=== PATIENT | male | born 1950 | race Caucasian/White ===

== ENCOUNTER 2018-06-04 15:44 | Emergency (ER) | payer MEDICARE ==
[~2018-06-04] VITALS: Ht 177.8 cm; Wt 81.6 kg
--- NOTE | 2018-06-04 16:13 | ED.ADGEN ---
Adult General Chief Complaint Chief Complaint RLQ pain HPI HPI Patient had onset of right lower quadrant pain after his dog jumped into his abdomen Devan evening. Since then, he's had progressive right lower quadrant pain associated with vomiting, no diarrhea with intermittent fevers and sweats. He's had decreased appetite and last ate a solid meal last night, but last fluid intake at 15:40. He denies any chest pain or shortness of breath. He denies any dysuria or flank pain. Review of Systems Review of Systems Constitutional: With fevers and sweats Eyes: Denies change in visual acuity, redness, or eye pain HENT: Denies nasal congestion or sore throat Respiratory: Denies cough or shortness of breath Cardiovascular: Denies chest pain GI: with RLQ abdominal pain, nausea,no vomiting, bloody stools or diarrhea : Denies dysuria or hematuria Musculoskeletal: Denies back pain or joint pain Integument: Denies rash or skin lesions Neurologic: Denies headache, focal weakness or sensory changes Endocrine: Denies polyuria or polydipsia All other systems were reviewed and found to be within normal limits, except as documented in this note. Current Medications Current Medications Current Medications Medications (Trade) Dose Ordered Sig/Sandeep Start Time Stop Time Status Last Admin Dose Admin Iohexol (Omnipaque 300 Mg/ml) 75 ml 1X ONCE 06/04/18 16:45 06/04/18 16:46 DC Ondansetron HCl (Zofran) 4 mg 1X ONCE 06/04/18 17:10 06/04/18 17:11 DC 06/04/18 16:51 4 MG Piperacillin Sod/ Tazobactam Sod (Zosyn) 3.375 gm STK-MED ONCE 06/04/18 18:25 06/04/18 18:26 DC Piperacillin Sod/ Tazobactam Sod 3.375 gm/Sodium Chloride 50 ml @ 100 mls/hr 1X ONCE 06/04/18 18:30 06/04/18 18:59 UNV Sodium Chloride 50 ml @ As Directed STK-MED ONCE 06/04/18 18:25 06/04/18 18:26 DC Sodium Chloride (Normal Saline Flush) 10 ml QSHIFT PRN 06/04/18 17:45 06/04/18 19:38 DC Allergies Allergies Allergies Coded Allergies Type Severity Reaction Last Updated Verified codeine Allergy Intermediate gi complaints 06/04/18 Yes Physical Exam Physical Exam Constitutional: Well developed, well nourished, mild pain distress, clammy HENT: Normocephalic, atraumatic, bilateral external ears normal, oropharynx moist, no oral exudates, nose normal. Eyes: PERRLA, EOMI, conjunctiva normal, no discharge. Neck: Normal range of motion, no tenderness, supple, no stridor. Cardiovascular:Heart rate regular rhythm, no murmur Lungs & Thorax: Bilateral breath sounds clear to auscultation Abdomen: Marked RLQ tenderness with guarding, decreased bowel sounds, no masses , no pulsatile masses. Skin: Warm, clammy, no erythema, no rash. Back: No tenderness, no CVA tenderness. Extremities: No tenderness, no cyanosis, no clubbing, ROM intact, no edema. Neurologic: Alert and oriented X 3, normal motor function, normal sensory function, no focal deficits noted. Psychologic: Affect normal, judgement normal, mood normal. Current Patient Data Vital Signs Vital Signs Date Time Temp Pulse Resp B/P (MAP) Pulse Ox O2 Delivery O2 Flow Rate FiO2 06/04/18 17:45 82 20 141/72 (95) 97 Room Air 06/04/18 15:44 98.4 Lab Results Laboratory Tests Test 06/04/18 16:00 06/04/18 16:15 06/04/18 17:35 06/04/18 19:07 Urine Collection Type Unknown Urine Color Yellow Urine Clarity Clear Urine pH 5.5 Urine Specific Aristes 1.015 Urine Protein 100 mg/dl (NEG-TRACE) Urine Glucose (UA) >=1000 mg/dL (NEG) Urine Ketones (Stick) 15 mg/dL (NEG) Urine Blood Mod (NEG) Urine Nitrite Neg (NEG) Urine Bilirubin Neg (NEG) Urine Urobilinogen Dipstick 0.2 mg/dL (0.2 mg/dL) Urine Leukocyte Esterase Neg (NEG) Urine RBC 3-5 /HPF (0-2) Urine WBC Occ /HPF (0-4) Urine Squamous Epithelial Cells Few /LPF Urine Bacteria 0 /HPF (0-FEW) Urine Mucus Slight /LPF White Blood Count 17.0 x10^3/uL (4.0-11.0) H Red Blood Count 5.01 x10^6/uL (4.30-5.70) Hemoglobin 14.8 g/dL (13.0-17.5) Hematocrit 44.4 % (39.0-53.0) Mean Corpuscular Volume 89 fL (79-100) Mean Corpuscular Hemoglobin 30 pg (25-35) Mean Corpuscular Hemoglobin Concent 33 g/dL (31-37) Red Cell Distribution Width 14.1 % (11.5-14.5) Platelet Count 139 x10^3/uL (140-400) L Neutrophils (%) (Auto) 89 % (31-73) H Lymphocytes (%) (Auto) 5 % (24-48) L Monocytes (%) (Auto) 5 % (0-9) Eosinophils (%) (Auto) 0 % (0-3) Basophils (%) (Auto) 0 % (0-3) Neutrophils # (Auto) 15.1 x10^3uL (1.8-7.7) H Lymphocytes # (Auto) 0.9 x10^3/uL (1.0-4.8) L Monocytes # (Auto) 0.9 x10^3/uL (0.0-1.1) Eosinophils # (Auto) 0.0 x10^3/uL (0.0-0.7) Basophils # (Auto) 0.0 x10^3/uL (0.0-0.2) Segmented Neutrophils % 77 % (35-66) H Band Neutrophils % 11 % (0-9) H Lymphocytes % 1 % (24-48) L Atypical Lymphocytes % (Manual) 5 % (0-0) H Monocytes % 6 % (0-10) Platelet Estimate Adequate (ADEQUATE) Sodium Level 135 mmol/L (136-145) L Potassium Level 4.8 mmol/L (3.5-5.1) Chloride Level 94 mmol/L (98-107) L Carbon Dioxide Level 31 mmol/L (21-32) Anion Gap 10 (6-14) Blood Urea Nitrogen 29 mg/dL (8-26) H Creatinine 1.7 mg/dL (0.7-1.3) H Estimated GFR (Cockcroft-Gault) 40.5 BUN/Creatinine Ratio 17 (6-20) Glucose Level 232 mg/dL (70-99) H Lactic Acid Level 3.0 mmol/L (0.4-2.0) H 1.6 mmol/L (0.4-2.0) Calcium Level 9.1 mg/dL (8.5-10.1) Total Bilirubin 1.9 mg/dL (0.2-1.0) H Aspartate Amino Transferase (AST) 16 U/L (15-37) Alanine Aminotransferase (ALT) 32 U/L (16-63) Alkaline Phosphatase 53 U/L (46-116) Total Protein 7.5 g/dL (6.4-8.2) Albumin 3.6 g/dL (3.4-5.0) Albumin/Globulin Ratio 0.9 (1.0-1.7) L Lipase 83 U/L (73-393) Prothrombin Time 11.4 SEC (9.4-11.4) Prothrombin Time INR 1.1 (0.9-1.1) Test 06/04/18 19:15 Troponin I Quantitative < 0.017 ng/mL (0-0.055) Laboratory Tests Test 06/04/18 16:00 06/04/18 16:15 06/04/18 17:35 06/04/18 19:07 Urine Collection Type Unknown Urine Color Yellow Urine Clarity Clear Urine pH 5.5 Urine Specific Aristes 1.015 Urine Protein 100 mg/dl Urine Glucose (UA) >=1000 mg/dL Urine Ketones (Stick) 15 mg/dL Urine Blood Mod Urine Nitrite Neg Urine Bilirubin Neg Urine Urobilinogen Dipstick 0.2 mg/dL Urine Leukocyte Esterase Neg Urine RBC 3-5 /HPF Urine WBC Occ /HPF Urine Squamous Epithelial Cells Few /LPF Urine Bacteria 0 /HPF Urine Mucus Slight /LPF White Blood Count 17.0 x10^3/uL Red Blood Count 5.01 x10^6/uL Hemoglobin 14.8 g/dL Hematocrit 44.4 % Mean Corpuscular Volume 89 fL Mean Corpuscular Hemoglobin 30 pg Mean Corpuscular Hemoglobin Concent 33 g/dL Red Cell Distribution Width 14.1 % Platelet Count 139 x10^3/uL Neutrophils (%) (Auto) 89 % Lymphocytes (%) (Auto) 5 % Monocytes (%) (Auto) 5 % Eosinophils (%) (Auto) 0 % Basophils (%) (Auto) 0 % Neutrophils # (Auto) 15.1 x10^3uL Lymphocytes # (Auto) 0.9 x10^3/uL Monocytes # (Auto) 0.9 x10^3/uL Eosinophils # (Auto) 0.0 x10^3/uL Basophils # (Auto) 0.0 x10^3/uL Segmented Neutrophils % 77 % Band Neutrophils % 11 % Lymphocytes % 1 % Atypical Lymphocytes % (Manual) 5 % Monocytes % 6 % Platelet Estimate Adequate Sodium Level 135 mmol/L Potassium Level 4.8 mmol/L Chloride Level 94 mmol/L Carbon Dioxide Level 31 mmol/L Anion Gap 10 Blood Urea Nitrogen 29 mg/dL Creatinine 1.7 mg/dL Estimated GFR (Cockcroft-Gault) 40.5 BUN/Creatinine Ratio 17 Glucose Level 232 mg/dL Lactic Acid Level 3.0 mmol/L 1.6 mmol/L Calcium Level 9.1 mg/dL Total Bilirubin 1.9 mg/dL Aspartate Amino Transf (AST/SGOT) 16 U/L Alanine Aminotransferase (ALT/SGPT) 32 U/L Alkaline Phosphatase 53 U/L Total Protein 7.5 g/dL Albumin 3.6 g/dL Albumin/Globulin Ratio 0.9 Lipase 83 U/L Prothrombin Time 11.4 SEC Prothromb Time International Ratio 1.1 Test 06/04/18 19:15 Troponin I Quantitative < 0.017 ng/mL Current Medications Medications (Trade) Dose Ordered Sig/Sandeep Route PRN Reason Start Time Stop Time Status Last Admin Dose Admin Iohexol (Omnipaque 300 Mg/ml) 75 ml 1X ONCE IV 06/04/18 16:45 06/04/18 16:46 DC Ondansetron HCl (Zofran) 4 mg STK-MED ONCE .ROUTE 06/04/18 16:37 06/04/18 16:38 DC Ondansetron HCl (Zofran) 4 mg 1X ONCE IV 06/04/18 17:10 06/04/18 17:11 DC 06/04/18 16:51 4 MG Sodium Chloride (Normal Saline Flush) 10 ml QSHIFT PRN IV AFTER MEDS AND BLOOD DRAWS 06/04/18 17:45 06/04/18 19:38 DC Sodium Chloride 1,000 ml @ 2,190 mls/hr Q28M IV 06/04/18 18:00 06/04/18 19:00 DC 06/04/18 19:14 2,190 MLS/HR Piperacillin Sod/ Tazobactam Sod 3.375 gm/Sodium Chloride 50 ml @ 100 mls/hr 1X ONCE IV 06/04/18 18:30 06/04/18 18:59 DC 06/04/18 18:31 100 MLS/HR Piperacillin Sod/ Tazobactam Sod 3.375 gm/Sodium Chloride 50 ml @ 100 mls/hr 1X ONCE IV 06/04/18 18:30 06/04/18 18:59 UNV Sodium Chloride 50 ml @ As Directed STK-MED ONCE .ROUTE 06/04/18 18:25 06/04/18 18:26 DC Piperacillin Sod/ Tazobactam Sod (Zosyn) 3.375 gm STK-MED ONCE IV 06/04/18 18:25 06/04/18 18:26 DC EKG EKG 16:27 ECG NSR @ 75 with Q waves II III aVF with no acute changes Radiology/Procedures Radiology/Procedures [address] [address] IMAGING REPORT Signed PATIENT: FERDINAND DELVALLE ACCOUNT: [id number] : 1950 LOCATION: ER AGE: 68 SEX: M EXAM STATUS: PRE ER ORD. PHYSICIAN: JUAN DIEGO TANG MD REASON: RLQ pain PROCEDURE: CT ABD PELV W/ IV CONTRST ONLY PQRS Compliance Statement: One or more of the following individualized dose reduction techniques were utilized for this examination: 1. Automated exposure control 2. Adjustment of the mA and/or kV according to patient size 3. Use of iterative reconstruction technique CT ABD PELV W/ IV CONTRST ONLY Clinical Indication: RLQ pain with vomiting x 1 day, Comparison: None. Technique: Helical CT imaging of the abdomen and pelvis is performed after 60 cc of Omnipaque 300 IV contrast. Oral contrast not given. Findings: Minimal bilateral dependent atelectasis. Coronary artery disease. Cardiac size normal. Calcified granulomas in the spleen. The liver, gallbladder, pancreas, and adrenal glands are normal. Mild mural thrombus and atherosclerotic calcification of the abdominal aorta and common iliac arteries. There is no hydronephrosis. There is left perinephric stranding. Mild cortical scarring of the bilateral kidneys. Stomach unremarkable. There is small bowel that is upper limits of normal in caliber and fluid-filled. There is no point of transition. Distal small bowel is normal caliber. The terminal ileum may be mildly thickened, probably reactive, there is nearby inflammation. There is moderate acute appendicitis. There is moderate surrounding inflammation. The diameter of the appendix measures about 15 mm. There are appendicoliths. No perforation or periappendiceal abscess. There is no colon wall thickening. No abdominal adenopathy. There is borderline wall thickening of the urinary bladder. Prostate size near upper limits of normal. There is mild pelvic free fluid. Degenerative spondylosis of the lower lumbar spine. IMPRESSION: 1. Moderate acute appendicitis. 2. Mild wall thickening of the terminal ileum may be reactive, in the vicinity of appendicitis. 3. Small bowel upper limits of normal in caliber and fluid-filled, probably ileus. 4. Mild pelvic free fluid. Electronically signed by: Jamaal Buck MD (06/04/2018 5:53 PM) [facility] DICTATED AND SIGNED BY: JAMAAL BUCK MD DATE: 06/04/18 1746 CC: KELSIE SWANSON; JUAN DIEGO TANG MD ~ Course & Med Decision Making Course & Med Decision Making Patient presents with complaints of right lower quadrant pain DDx-acute appendicitis, colitis, kidney stone, UTI, obstruction Patient was stable in the emergency department. Labs remarkable for leukocytosis , elevated BUN creatinine, hyperglycemia, elevated serum lactate. ECG and troponin showed no evidence of ACS. CT Abdomen pelvis showed acute appendicitis. Patient was given IV NS 30ml/kg bolus, Zosyn IV after blood cultures. After IV NS fluid bolus serum lactate normalized. Patient NPO. 19:[address] Santiago who accepts patient to [facility] for evaluation of acute appendicitis 19:[address] King for medical consultation Final Impression Final Impression Clinical impression Acute appendicitis Renal insufficiency Eileen Disclaimer Eileen Disclaimer This electronic medical record was generated, in whole or in part, using a voice recognition dictation system. Departure Departure: Impression: Primary Impression: Appendicitis, acute Additional Impression: Renal insufficiency Disposition: 05 XFER OTHER Condition: STABLE JUAN DIEGO TANG MD Jun 04, 2018 16:13
[2018-06-04] MEDS ORDERED: ONDANSETRON PF 4 MG/2 ML VIAL. ONE (16:37)
[2018-06-04 16:42] LABS: BASO % 0 % (0-3); EOS % 0 % (0-3); HEMATOCRIT 44.4 % (39.0-53.0); HEMOGLOBIN 14.8 g/dL (13.0-17.5); LYMPH # 0.9 x10^3/uL (1.0-4.8); LYMPH % 5 % (24-48); MEAN CORPUSCULAR HEMOGLOBIN 30 pg (25-35); MEAN CORPUSCULAR HGB CONC 33 g/dL (31-37); MEAN CORPUSCULAR VOLUME 89 fL (79-100); MONO # 0.9 x10^3/uL (0.0-1.1); MONO % 5 % (0-9); NEUT # 15.1 x10^3uL (1.8-7.7); NEUT % 89 % (31-73); PLATELET COUNT 139 x10^3/uL (140-400); RED BLOOD COUNT 5.01 x10^6/uL (4.30-5.70); RED CELL DISTRIBUTION WIDTH 14.1 % (11.5-14.5)
[2018-06-04] MEDS ORDERED: IOHEXOL 300 MG/ML 75 ML VIAL. IV ONE (16:45)
[2018-06-04 16:53] LABS: ALBUMIN 3.6 g/dL (3.4-5.0); ALBUMIN/GLOBULIN RATIO 0.9 (1.0-1.7); CALCIUM 9.1 mg/dL (8.5-10.1); CREATININE 1.7 mg/dL (0.7-1.3); GFR 40.5; POTASSIUM 4.8 mmol/L (3.5-5.1); TOTAL BILIRUBIN 1.9 mg/dL (0.2-1.0); TOTAL PROTEIN 7.5 g/dL (6.4-8.2)
[2018-06-04] MEDS ORDERED: ONDANSETRON PF 4 MG/2 ML VIAL. IV ONE (17:10)
[2018-06-04 17:14] LABS: BACTERIA,URINE 0 /HPF (0-FEW); BILIRUBIN,URINE NEG (NEG); CLARITY,URINE CLEAR; COLOR,URINE YELLOW; GLUCOSE,URINE >=1000 mg/dL (NEG); NITRITE,URINE NEG (NEG); SQUAMOUS EPITHELIAL CELL,UR FEW /LPF; UROBILINOGEN,URINE 0.2 mg/dL (0.2 mg/dL); WBC,URINE OCC /HPF (0-4)
--- NOTE | 2018-06-04 17:25 | EKG ---
[address] [address] Test Date: 2018-06-04 Test Time: 16:23:43 Pat Name: FERDINAND DELVALLE Department: Room: Gender: M [employer] Operator: TRICE : 1950 Requested By: JUAN DIEGO TANG Order Number: [id number] Reading MD: Measurements Intervals [place] Rate: 75 P: -4 HI: 202 QRS: -27 QRSD: 86 T: 42 QT: 380 QTc: 427 Interpretive Statements SINUS RHYTHM LEFTWARD AXIS NO SPECIFIC ECG ABNORMALITIES RI6.01 No previous ECG available for comparison
[2018-06-04 17:45] VITALS: BP 141/72
[2018-06-04] MEDS ORDERED: 0.9 % SODIUM CHLORIDE 10 ML DISP.SYRIN. IV PRN (17:45)
--- NOTE | 2018-06-04 17:56 | RAD ---
PQRS Compliance Statement: One or more of the following individualized dose reduction techniques were utilized for this examination: 1. Automated exposure control 2. Adjustment of the mA and/or kV according to patient size 3. Use of iterative reconstruction technique CT ABD PELV W/ IV CONTRST ONLY Clinical Indication: RLQ pain with vomiting x 1 day, Comparison: None. Technique: Helical CT imaging of the abdomen and pelvis is performed after 60 cc of Omnipaque 300 IV contrast. Oral contrast not given. Findings: Minimal bilateral dependent atelectasis. Coronary artery disease. Cardiac size normal. Calcified granulomas in the spleen. The liver, gallbladder, pancreas, and adrenal glands are normal. Mild mural thrombus and atherosclerotic calcification of the abdominal aorta and common iliac arteries. There is no hydronephrosis. There is left perinephric stranding. Mild cortical scarring of the bilateral kidneys. Stomach unremarkable. There is small bowel that is upper limits of normal in caliber and fluid-filled. There is no point of transition. Distal small bowel is normal caliber. The terminal ileum may be mildly thickened, probably reactive, there is nearby inflammation. There is moderate acute appendicitis. There is moderate surrounding inflammation. The diameter of the appendix measures about 15 mm. There are appendicoliths. No perforation or periappendiceal abscess. There is no colon wall thickening. No abdominal adenopathy. There is borderline wall thickening of the urinary bladder. Prostate size near upper limits of normal. There is mild pelvic free fluid. Degenerative spondylosis of the lower lumbar spine. IMPRESSION: 1. Moderate acute appendicitis. 2. Mild wall thickening of the terminal ileum may be reactive, in the vicinity of appendicitis. 3. Small bowel upper limits of normal in caliber and fluid-filled, probably ileus. 4. Mild pelvic free fluid. Electronically signed by: Jamaal Buck MD (06/04/2018 5:53 PM) [facility]
[2018-06-04] MEDS: IV NORMAL SALINE 1,000ML 1,000 ML IV SCH ×2 (17:58→19:14)
[2018-06-04] MEDS ORDERED: PIPERACILLIN/TAZOBACTAM 3.375 GM VIAL IV ONE (18:25)
[2018-06-04] MEDS ORDERED: IV NORMAL SALINE 50ML 50 ML ONE (18:25)
[2018-06-04] MEDS ORDERED: PIPERACILLIN/TAZOBACTAM 3.375 GM in IV NORMAL SALINE 50ML 50 ML IV ONE ×4 (18:30)
[2018-06-04 20:52] LABS: % BANDS 11 % (0-9); % LYMPHS 1 % (24-48); % MONOS 6 % (0-10); % SEGS 77 % (35-66)
[2018-06-04 20:53] LABS: PLT ESTIMATE ADEQUATE (ADEQUATE)
[2018-06-04 21:00] LABS: % ATYL 5 % (0-0)
== END 2018-06-04 19:38 | disposition short-term general hospital (02) ==
LOC: ER 15:44
DX: K35.80 Unspecified acute appendicitis (principal); N28.9 Disorder of kidney and ureter, unspecified; D72.829 Elevated white blood cell count, unspecified; R79.89 Other specified abnormal findings of blood chemistry; R73.9 Hyperglycemia, unspecified; R74.8 Abnormal levels of other serum enzymes; Z88.5 Allergy status to narcotic agent
CPT/HCPCS: 36415; 74177; 80053; 81001; 83605; 83690; 84484; 85007; 85025; 85610; 87040; 87205; 93005; 96365; 96375; 99285; J2405; J2543; Q9967; J7030